=== PATIENT | female | born 1985 | race Caucasian/White ===

== ENCOUNTER 2020-11-10 17:53 | Emergency (ER) | payer OTHER ==
[~2020-11-10] VITALS: Ht 167.6 cm; Wt 54.4 kg
[2020-11-10 17:54] VITALS: BP 122/78
--- NOTE | 2020-11-10 17:55 | NUR ---
Pt FAITH via gurney to bed 11.
--- NOTE | 2020-11-10 18:00 | NUR ---
35 Y/O FEMALE BIBA FROM HOME C/O DENNIS, NAUSEA, ANXIETY ATTACK X TODAY. PER EMS MOTHER TOLD EMS THAT PATIENT USES DRUG BUT PATIENT DENIES ANY DRUG USE. AAOX4. PT DENIES ANY PAIN. PMH: FIBROMYALGIA, ANXIETY, DEPRESSION NKA
--- NOTE | 2020-11-10 19:12 | NUR ---
Pt report given to GRACIA SIDHU. Transfer of care at this time.
--- NOTE | 2020-11-10 19:15 | NUR ---
RECEIVED REPORT FROM OMAR SIDHU DAYSHIFT NURSE, PT LYING IN BED ON ROOM AIR V/S STABLE BUT IS ANXIOUS, YELLING AND CRYING.
[2020-11-10] MEDS ORDERED: OLANZapine 5 MG ODT PO ONE (19:20)
[2020-11-10] MEDS ORDERED: LORazepam 2 MG/ML VIAL IVP ONE (19:20)
[2020-11-10] MEDS ORDERED: LORazepam 1 MG TAB PO ONE (19:30)
[2020-11-10 19:36] LABS: BASOPHILS # (AUTO) 0.1 K/uL (0.00-0.22); BASOPHILS % (AUTO) 0.5 % (0.0-2.0); HEMATOCRIT 37.8 % (36-48); LYMPHOCYTES # (AUTO) 1.7 K/uL (2.5-16.5); LYMPHOCYTES % (AUTO) 14.4 % (20.5-51.1); MEAN CORPUSCULAR HEMOGLOBIN 32 pg (27-31); MEAN CORPUSCULAR HGB CONC 34 g/dL (33-37); MONOCYTES # (AUTO) 0.9 K/uL (0.8-1.0); MONOCYTES % (AUTO) 7.8 % (1.7-9.3); NEUTROPHILS # (AUTO) 9.3 K/uL (1.8-7.7); NEUTROPHILS % (AUTO) 77.3 % (42.2-75.2); PLATELET COUNT (AUTO) 400 K/uL (140-450); RED BLOOD CELL COUNT(AUTO) 4.11 MIL/uL (4.20-5.40); RED CELL DISTRIBUTION WIDTH 13.2 % (11.6-13.7); WHITE BLOOD COUNT (AUTO) 12.1 K/uL (4.8-10.8)
--- NOTE | 2020-11-10 19:50 | NUR ---
PT RECEIVED ORDERED MEDICATION OF ATIVAN AND ZYPREXIA. REVIEWED MEDICATION AND ITS PURPOSES PT VERBELIZED ACKNOWLEDGMENT.
[2020-11-10 20:00] LABS: ALBUMIN 4.5 g/dL (3.4-5.0); ANION GAP 16.7 (8-16); ASPARTATE AMINOTRANSFERASE 22 U/L (15-37); CARBON DIOXIDE 22.7 mmol/L (21-32); CHLORIDE 102 mmol/L (98-107); CREATININE 0.7 mg/dL (0.6-1.3); FREE T4 (FREE THYROXINE) 1.24 ng/dL (0.76-1.46); GFR ARICAN-AMERICAN 124 mL/min (>90); GLUCOSE 109 mg/dL (74-106); POTASSIUM 3.4 mmol/L (3.5-5.1); SODIUM SERUM 138 mmol/L (136-145); THYROID STIMULATING HORMONE 1.19 uIU/mL (0.34-3.74); TOTAL BILIRUBIN 0.3 mg/dL (0.0-1.0); UREA NITROGEN, BLOOD 8 mg/dL (7-18)
[2020-11-10 20:01] LABS: SALICYLATE < 2.8 mg/dL (2.8-20.0)
[2020-11-10 20:02] LABS: ACETAMINOPHEN < 0.5 ug/ml (10-30)
--- NOTE | 2020-11-10 20:16 | NUR ---
PT LYING IN BED QUIETLY V/S FOLLOWS: T 97.7 P 104 R 20 B/P 119/75 02 98% ON ROOM AIR.
[2020-11-10 20:39] LABS: APPEARANCE,URINE SL CLOUDY (CLEAR); BILIRUBIN,URINE 1+ (NEGATIVE); BLOOD, URINE NEGATIVE (NEGATIVE); COLOR,URINE YELLOW (YELLOW); LEUKOCYTE ESTERASE ,URINE NEGATIVE (NEGATIVE); NITRITE, URINE NEGATIVE (NEGATIVE); UGLUCOSE NEGATIVE (NEGATIVE)
--- NOTE | 2020-11-10 20:47 | NUR ---
OBTAINED SAM SWAB FROM PT AND GAVE SWAB TO QUENTIN MILLER
[2020-11-10 21:07] LABS: BARBITURATE, URINE NEGATIVE ng/ml (NEG <=200); BENZODIAZEPINE, URINE NEGATIVE ng/mL (NEG <=200); CANNABINOID, URINE POSITIVE ng/mL (NEG <=50); COCAINE, URINE NEGATIVE ng/mL (NEG <=300); OPIATE, URINE NEGATIVE ng/mL (NEG <=2000); PHENCYCLIDINE SCREEN,URINE NEGATIVE ng/mL (NEG <=25)
--- NOTE | 2020-11-10 22:58 | NUR ---
SPOKE WITH MARIELLE AT [facility] REGARDING POSSIBLE VOLUNTARY ADMISSION. REPORT GIVEN, RECEIVED FAX AND CALL BACK NUMBER, TELEPSYCH NEEDED FOR POSSIBLE PLACEMENT.CHARTAND RESULTS OF TELEPSCY CONSULT WILL BE FAXE TO [facility]. PT IS IN BED SLEEPING AT THIS TIME.
--- NOTE | 2020-11-11 00:58 | NUR ---
PT SLEEEPING IN BED AROUSABLE TO NAME AND LIGHT SHAKING V/S FOLLOWS: T 97.7 P 80 R 20 B/P 106/70 02 97% ON ROOM AIR.
--- NOTE | 2020-11-11 03:11 | NUR ---
BENJI AVENDANO APPROVED TO USE [facility] TELEPSYCH SERVICE D/T DELAY IN [facility] NOT BEING ABLE TO TELEPSYCH UNTIL 11AM
--- NOTE | 2020-11-11 03:20 | NUR ---
SOC TELEPSYCH INITIATED PER DR. ANTONY WITH APPROVAL FROM [employer] NAHUM LOVETT
--- NOTE | 2020-11-11 04:33 | NUR ---
RECIEVED CALL FROM FLAKITO FROM [facility] FOR TELEMED. DUE TO HIGH VOLUMES OF CALLS WILL MOST LIKELY WILL BE CALLING AROUND 7AM. WILL BE CHECKING CAMERA ON THE COMPUTER AND GIVING US A CALL BACK WHEN DOCTOR IS READY TO HAVE A CONSULT WITH PATIENT. PT IS SLEEPING RIGHT NOW IN BED. COMPUTER AT BEDSIDE, READY FOR TELE PSYCH CONSULT.
--- NOTE | 2020-11-11 05:45 | NUR ---
PT SLEEPING IN BED SHE IS AROUSABLE TO NAME AND LIGHT TOUCH. COMPUTER FOR TELEPSYCH IN THE ROOM V/S FOLLOWS: T 97.0 P 90 R 18 B/P 106/64 02 95% ON ROOM AIR.
--- NOTE | 2020-11-11 06:28 | NUR ---
RETURN CALL FROM TELEPSYCH DOCTOR WHO SPOKE WITH PRIMARY RN Arjun GALLEGOS
--- NOTE | 2020-11-11 06:29 | NUR ---
TELEPSYCH DOCTOR SPEAKING WITH PATIENT
--- NOTE | 2020-11-11 06:34 | NUR ---
PT SPEAKING WITH MD ALY BILLINGS FOR THE TELEPSYCH CONSULT.
--- NOTE | 2020-11-11 06:44 | NUR ---
TELEPSYCH DOCTOR SPOKE WITH DR. HAN
--- NOTE | 2020-11-11 06:48 | NUR ---
TELEPSYCH CONSULT COMPLETED.
--- NOTE | 2020-11-11 07:25 | NUR ---
report received from NAHUM Abrams. transfer of care received for continuity of care
--- NOTE | 2020-11-11 08:24 | NUR ---
Patient appears to be resting comfortably in bed. Vital Signs within normal limits. Respirations even and unlabored. vital signs have been charted. bed is in lowest position with siderail x2 up. will continue to monitor pt status
--- NOTE | 2020-11-11 09:14 | NUR ---
PROVIDED PT WITH CUP OF WATER BEDSIDE
--- NOTE | 2020-11-11 11:53 | NUR ---
pt provided with turkey sandwhich and orange juice bedside.
--- NOTE | 2020-11-11 12:58 | NUR ---
REPORT GIVEN TO NAHUM CHOW AT [facility]
--- NOTE | 2020-11-11 13:37 | NUR ---
consent for transfer obtained and placed into pt chart
--- NOTE | 2020-11-11 15:28 | NUR ---
[facility] TRANSPORT BEDSIDE WITH PT
[2020-11-11 15:31] VITALS: BP 110/65
--- NOTE | 2020-11-11 15:31 | NUR ---
Patient to be transferred to [facility]. Is being transferred due to HIGHER LEVEL OF CARE. Receiving facility has accepting physician and available space. ER physician has signed transfer form. Patient or responsible republican has agreed to transfer and signed form. Patient belongings inventoried and will be sent with patient. Copy of nursing notes, lab reports, EKG, Physicians Orders and X-rays to be sent with patient. Report called to NAHUM CHOW at receiving facility. [facility] ambulance service has been called for transfer. ETA is [id number].
== END 2020-11-11 15:30 ==
LOC: MED 17:53
DX: F20.9 Schizophrenia, unspecified (principal); Z20.822 Contact with and (suspected) exposure to COVID-19; R44.0 Auditory hallucinations; F41.9 Anxiety disorder, unspecified; F32.9 Major depressive disorder, single episode, unspecified
CPT/HCPCS: 36415; 80053; 80305; 81003; 84439; 84443; 84702; 85025; 87426; 99285; G0480; G0482